=== PATIENT | female | born 1955 | race Caucasian/White ===

== ENCOUNTER 2016-08-12 16:40 | Emergency (ER) | payer MEDICAID, OTHER ==
[~2016-08-12] VITALS: Ht 165.1 cm; Wt 90.5 kg
[2016-08-12 16:41] VITALS: BP 179/85; PULSE 88; RESP 16; TEMP 98; O2SAT 97
[2016-08-12] MEDS ORDERED: predniSONE 20 MG TAB PO ONE (17:15)
[2016-08-12] MEDS ORDERED: BENZ100 PO (17:15)
[2016-08-12] MEDS ORDERED: ALBUAER3 INH (17:15)
[2016-08-12] MEDS ORDERED: PRED-503 PO (17:15)
[2016-08-12] MEDS ORDERED: RESP: ALBUTEROL 2.5 MG/3 ML NEB (SCH) INH ONE (17:15)
[2016-08-12] MEDS ORDERED: AZIT500T2 PO (17:15)
--- NOTE | 2016-08-12 17:15 | PD ---
HPI Chief Complaint: Cold / Flu Symptoms Time Seen by Provider: 17:12 Travel History International Travel<30 days: No Contact w/Intl Traveler<30days: No Traveled to known affect area: No History of Present Illness HPI 61-year-old female presents to the emergency Department with complaint of bronchitis that started on Sunday night. She has history of bronchitis multiple times. Denies nasal congestion, sore throat, ear pain. Denies fever, chills, nausea, vomiting. Denies chest tightness, chest pain, shortness of breath. Denies wheezing. Reports consistent dry cough. Has not taken any medications or tried any treatments to alleviate her symptoms. No one else with similar symptoms. No known aggravating or relieving factors. Allergies to codeine. Primary care provider is in [place]. Denies significant past medical history. Other modifying factors or associated signs and symptoms. PFSH Past Medical History Medical History: Denies Significant Hx Respiratory: Yes Social History Tobacco Use: No Allergies-Medications (Allergen,Severity, Reaction): Coded Allergies: Codeine (Verified Adverse Reaction, Unknown, Nausea/Vomiting, 08/12/16) Reported Meds & Prescriptions Reported Meds & Active Scripts Active Azithromycin 500 Mg Tab 500 Mg PO DAILY Tessalon Perles (Benzonatate) 100 Mg Cap 100 Mg PO TID PRN Deltasone (Prednisone) 20 Mg Tab 40 Mg PO DAILY 4 Days start 08/13/2016 Proair Hfa 8.5 GM Inh (Albuterol Sulfate) 90 Mcg/Act Aer 2 Puff INH Q4-6H PRN 108 mcg/actuation Review of Systems Except as stated in HPI: all other systems reviewed are Neg Physical Exam Narrative GENERAL: Well-nourished, well-developed female patient, in no acute distress; afebrile, nontoxic-appearing SKIN: Warm and dry. HEAD: Atraumatic. Normocephalic. EYES: Pupils equal and round. No scleral icterus. No injection or drainage. ENT: Mucosa pink and moist. No erythema or exudates. No uvular edema. No uvular , palatal, or tonsillar deviation. Airway patent. Nares without nasal blood, purulent drainage or septal hematoma. EARS: Bilateral pinnae and external canals appear within normal limits. Bilateral tympanic membranes without erythema, dullness or perforation. NECK: Trachea midline. No lymphadenopathy. CARDIOVASCULAR: Regular rate and rhythm. No murmur appreciated. RESPIRATORY: No accessory muscle use. Lungs with decreased lung sounds to bilateral bases to auscultation. Breath sounds equal bilaterally. No retractions or tachypnea. No Audible wheezing noted. GASTROINTESTINAL: Abdomen soft, non-tender, nondistended. Hepatic and splenic margins not palpable. Bowel sounds are active 4 quadrants. MUSCULOSKELETAL: No obvious deformities. No clubbing. No cyanosis. No edema. NEUROLOGICAL: Awake and alert. Oriented 3. No obvious cranial nerve deficits. Motor grossly within normal limits. Normal speech. Moves all extremities. 5/5 strength to all extremities. PSYCHIATRIC: Appropriate mood and affect; insight and judgment normal. Data Data Last Documented VS Vital Signs Date Time Temp Pulse Resp B/P Pulse Ox O2 Delivery O2 Flow Rate FiO2 08/12/16 16:41 98.0 88 16 179/85 97 Orders Prednisone (Deltasone) (08/12/16 17:15) Albuterol Neb (Albuterol Neb) (08/12/16 17:15) [facility] Medical Decision Making Medical Screen Exam Complete: Yes Emergency Medical Condition: Yes Medical Record Reviewed: Yes Differential Diagnosis Bronchitis, upper respiratory infection, pneumonia Narrative Course 61-year-old female physical examination consistent with bronchitis. Patient is afebrile and nontoxic-appearing. She denies fever, chills, nausea or vomiting. Patient is in no acute distress and without retractions or tachypnea. Lungs are decreased in bilateral bases on auscultation. Dry cough noted. Albuterol nebulizer and Deltasone ordered. Patient requesting a Z-Marvin. Pro-air inhaler, Deltasone, Tessalon Perles, and a azithromycin prescribed for home. Patient is medically cleared and stable for discharge. Discussed reasons to return to the emergency department. Instructed patient to follow up with primary care provider. Patient agrees with treatment plan. The patients vital signs are stable and the patient is stable for outpatient follow-up and treatment. Patient discharged home, stable and in no acute distress. Diagnosis Primary Impression: Bronchitis Referrals: Primary Care Physician Patient Instructions: Acute Bronchitis (ED), General Instructions Additional Instructions: Use Albuterol inhaler as prescribed Take oral steroids as prescribed and complete full course Use Tessalon Perles as prescribed to decrease coughing spasms Ttis-[id number]-[id number] decongestants or antihistamines as directed and as needed for symptom management Your cough can last 4-6 weeks Drink plenty of fluids to prevent dehydration Use hot air humidifier to decrease cough exacerbation Turn off ceiling fans and sleep with head of bed elevated Avoid triggers such as second hand smoke, dust, known allergens Follow-up with your primary care provider Return to the emergency department immediately with worsening of symptoms Med/Other Pt SpecificInfo: Prescription(s) given Scripts Azithromycin 500 Mg [id number] Mg PO DAILY #5 TAB Ref 0 Prov:Kimberlee Cummings 08/12/16 Benzonatate (Tessalon Perles)100 Mg [id number] Mg PO TID PRN (COUGH) #20 CAP Ref 0 Prov:Kimberlee Cummings 08/12/16 Prednisone (Deltasone)20 Mg Tab40 Mg PO DAILY 4 Days Ref 0 start 08/13/2016 Prov:Kimberlee Cummings 08/12/16 Albuterol 8.5 GM Inh (Proair Hfa 8.5 GM Inh)90 Mcg/Act Aer2 Puff INH Q4-6H PRN ( SOB/WHEEZING) #1 INHALER Ref 0 108 mcg/actuation Prov:Kimberlee Cummings 08/12/16 Disposition: 01 DISCHARGE HOME Condition: Stable Kimberlee Cummings Aug 12, 2016 17:15
== END 2016-08-12 17:59 | disposition home or self-care (01) ==
LOC: NEPB 16:40
DX: J40 Bronchitis, not specified as acute or chronic (principal)
CPT/HCPCS: 94664; 99283; J7512; J7613